=== PATIENT | male | born 1995 | race Hispanic/Latino ===

== ENCOUNTER 2018-12-10 15:26 | Observation (INO) | payer MEDICAID, OTHER ==
[2018-12-10] VITALS: BP 131/66
[~2018-12-10] VITALS: Ht 180.3 cm; Wt 80.5 kg
[2018-12-10 16:09] LABS: BASOPHILS % (AUTO) 0.9 % (0.0-5.0); EOSINOPHILS % (AUTO) 2.1 % (0.0-8.0); MEAN CORPUSCULAR HEMOGLOBIN 32.1 pg (27.0-33.0); MEAN CORPUSCULAR HGB CONC 34.5 g/dL (32.0-36.0); MEAN CORPUSCULAR VOLUME 93.3 fL (80-100); MONOCYTES % (AUTO) 4.5 % (3.0-13.0); NEUTROPHILS % (AUTO) 76.5 % (40.0-77.0); NUCLEATED RED BLOOD CELLS 0.1 % (0.0-0.19); PLATELET COUNT (AUTO) 241 K/uL (130-400); RED BLOOD CELL COUNT(AUTO) 4.83 MIL/uL (4.50-6.20); RED CELL DISTRIBUTION WIDTH 13.4 % (11.0-15.5)
[2018-12-10] MEDS ORDERED: IOHEXOL-350 75 ML VIAL IV ONE (16:58)
[2018-12-10] MEDS ORDERED: LIDOCAINE HCL 1% 20 ML VIAL ONE (17:18)
[2018-12-10] MEDS ORDERED: HYDROCODONE/ACETAMINOPHEN 10/325 MG TAB ONE (17:20)
[2018-12-10] MEDS ORDERED: OCTYL 2-CYANOACRYLATE 1 EACH TP ONE ×2 (17:28→17:36)
[2018-12-10] MEDS ORDERED: TETANUS/DIPHTHERIA TOXOID [ADULT] 0.5 ML VIAL IM ONE (17:45)
[2018-12-10] MEDS ORDERED: CEFAZOLIN SODIUM 1 GM VIAL ONE (21:26)
[2018-12-10] MEDS ORDERED: MORPHINE SULFATE 2 MG/ML 1ML SYG ONE (21:27)
[2018-12-10] MEDS ORDERED: ACETAMINOPHEN-CODEINE 300/30MG TAB ONE (21:49)
[2018-12-10] MEDS ORDERED: ACETAMINOPHEN-CODEINE 300/30MG TAB PO PRN ×2 (22:15)
[2018-12-10] MEDS ORDERED: MORPHINE SULFATE 2 MG/ML 1ML SYG IVP PRN (22:15)
[2018-12-10 23:00] VITALS: BP 131/66
[2018-12-11 04:22] VITALS: BP 107/57
[2018-12-11] MEDS: CEFAZOLIN SODIUM 1 GM VIAL IVP SCH ×2 (04:43→12:33)
[2018-12-11 08:00] VITALS: BP 117/70
[2018-12-11 12:00] VITALS: BP 124/74
--- NOTE | 2018-12-11 13:30 | NUR ---
Dr Guido here ,cancelled surgery on patient Rx written .states patient can be discharged Addendum: 12/11/18 at 1334 by ROLF ACOSTA RN RN Amended: Links added.
[2018-12-11 16:00] VITALS: BP 126/82
--- NOTE | 2018-12-11 16:28 | NUR ---
Pt. Discharged in stable condition. Pt. given discharge instructions. Instructed on s/s of infection. F/U with Dr. Pepe in 1 week for removal of sutures. Patient taught back instructions. Given opportunity to ask questions and no other questions or concerns voiced. Patient given Flu vaccine and wound pictures taken. Patient in no distress upon discharge.
--- NOTE | 2018-12-11 17:00 | NUR ---
NO IA PT DISCHARGED IN OBS STATUS, STABLE CONDITION, SURGERY CANCELLED, NO CONCERNS VOICED BY OR TO PRIMARY RN.
== END 2018-12-11 16:45 | disposition home or self-care (01) ==
LOC: EDH 15:26 → EDHIP 15:27 → 4AH 22:10
PROVIDERS: ADMIT Surgery Plastic and Reconstructive Surgery; ATTEND Surgery Plastic and Reconstructive Surgery
DX: S01.111A Laceration without foreign body of right eyelid and periocular area, initial encounter (principal); X99.1XXA Assault by knife, initial encounter; Y93.89 Activity, other specified; Y92.89 Other specified places as the place of occurrence of the external cause; Y99.8 Other external cause status; Z23 Encounter for immunization
CPT/HCPCS: 12011; 13121; 36415; 73090; 80048; 85025; 86850; 86900; 86901; 90471; 90714; 96374; 96375; 96376; 99285; A4218 ×2; G0008; G0378 ×25; J0690 ×3; Q2035; Q9967

== ENCOUNTER 2018-12-20 07:46 | Emergency (ER) | payer SELFPAY | END 2018-12-20 08:39 | disposition home or self-care (01) | LOC: EDH 07:46 | DX: S41.112D Laceration without foreign body of left upper arm, subsequent encounter (principal); Z90.49 Acquired absence of other specified parts of digestive tract; X99.8XXD Assault by other sharp object, subsequent encounter | CPT/HCPCS: 99281 ==

== ENCOUNTER 2021-10-25 10:24 | Emergency (ER) | payer SELFPAY ==
[~2021-10-25] VITALS: Ht 175.3 cm; Wt 104.3 kg
[2021-10-25] MEDS ORDERED: ACETAMINOPHEN WITH CODEINE 1 TAB TAB PO ONE (13:00)
[2021-10-25] MEDS ORDERED: D-ME1POW16 PO (14:19)
[2021-10-25 14:31] VITALS: BP 112/72
== END 2021-10-25 14:32 | disposition home or self-care (01) ==
LOC: EDH 10:24
DX: J06.9 Acute upper respiratory infection, unspecified (principal); Z20.822 Contact with and (suspected) exposure to COVID-19; Z90.49 Acquired absence of other specified parts of digestive tract
CPT/HCPCS: 71045; 87426; 87804